=== PATIENT | male | born 1975 | race Caucasian/White ===

== ENCOUNTER 2018-01-25 05:12 | Inpatient (IN) ==
[2018-01-25] MEDS ORDERED: Metoprolol Tartrate 25 MG Tablet PO ONE (05:34)
[2018-01-25] MEDS ORDERED: Chlorhexidine Gluconate 2% 1 Pack (2 Cloths) TOPICAL ONE (05:34)
[2018-01-25] MEDS ORDERED: Chlorhexidine 4% Topical 120 APPLIC/120 ML Bottle TOPICAL SCH (05:45)
[2018-01-25] MEDS ORDERED: Sodium Chlor 0.9% Inj 500 ML IV.SIG SCH (06:00)
[2018-01-25 07:03] LABS: Baso # (Auto) 0.1 th/mm3 (0.0-0.2); Baso % (Auto) 0.8 % (0.0-2.0); Eos # (Auto) 0.3 th/mm3 (0.0-0.4); Hematocrit 43.2 % (39.0-51.0); Hemoglobin 14.8 gm/dL (13.0-17.0); Lymph # (Auto) 3.4 th/mm3 (1.0-4.8); Lymph % (Auto) 25.2 % (9.0-44.0); Mean Corpuscular HGB Conc 34.3 % (32.0-36.0); Mean Corpuscular Hemoglobin 29.9 pg (27.0-34.0); Mean Corpuscular Volume 87.2 fL (80.0-100.0); Mean Platelet Volume 9.9 fL (7.0-11.0); Mono % (Auto) 7.3 % (0.0-8.0); Neut # (Auto) 8.8 th/mm3 (1.8-7.7); Neut % (Auto) 64.7 % (16.0-70.0); Platelet Count 278 th/mm3 (150-450); Red Blood Count 4.96 mil/mm3 (4.50-5.90); Red Cell Distribution Width 13.3 % (11.6-17.2); White Blood Count 13.5 th/mm3 (4.0-11.0)
[2018-01-25] MEDS ORDERED: Sodium Chlor 0.9% Inj 500 ML IV.CONT ONE (07:04)
[2018-01-25] MEDS ORDERED: Ketorolac Inj 30 MG/ML (IVP) Vial IV.PUSH ONE (07:04)
[2018-01-25] MEDS ORDERED: Succinylcholine Inj 100 MG/5 ML Syringe IV.PUSH ONE (07:04)
[2018-01-25] MEDS ORDERED: Glycopyrrolate Inj 1 MG/5 ML Syringe IV.PUSH ONE (07:04)
[2018-01-25] MEDS ORDERED: Neostigmine Inj 5 MG/5 ML Syringe IV.PUSH ONE (07:04)
[2018-01-25] MEDS ORDERED: Lidocaine PF 1% Inj 5 ML Syringe OTHER ONE (07:04)
[2018-01-25] MEDS ORDERED: Clindamycin Inj 900 MG/6 ML Vial ONE (07:10)
[2018-01-25] MEDS ORDERED: Bupivacaine/Epinephrine Inj 0.25% 50 ML Vial ONE (07:19)
[2018-01-25] MEDS ORDERED: MEROPENEM 1000 MG VIAL INFILTRATN ONE (08:00)
[2018-01-25] MEDS ORDERED: HYDROmorphone PF Inj 2 MG/ML Vial ONE (08:25)
[2018-01-25] MEDS ORDERED: Post-op Orders (for Pharmacy) OTHER STA (08:43)
[2018-01-25] MEDS ORDERED: Vancomycin Inj 1 GM/200 ML PIGGYBACK IV.SIG SCH (09:00)
--- NOTE | 2018-01-25 09:00 | P.OP ---
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 My P.A. presence was necessary throughout this case for the manipulation and positioning of the surgical extremity. My P.A. was assisting me throughout the duration of this procedure. The skill set of a physician hr assistant was medically necessary to complete this procedure. During the surgical case the surgical clinical reviewer was working at the back table and the physician hr assistant was directly assisting me. Operation and Findings: Ghassan had a type III open tibia several years ago. He has had multiple surgeries and procedures. He has had continued osteomyelitis and infected hardware of his right tibia. Treatment options were discussed. Patient wished to proceed with amputation. Informed consent was obtained preoperatively and operative site was marked. Patient was brought to the OR and placed on the OR table. IV sedation and GETA were administered by anesthesia and IV antibiotics were given. The Operative leg was prepped with alcohol, followed by Hibiclens and draped in the usual sterile fashion. Time out procedure was performed. The procedure began with removal of deep hardware. Incisions were made over the distal interlocking screws. The screws were localized under fluoroscopy. The screws were now removed. The 2 proximal screws were also identified under fluoroscopy. Incisions were made over the proximal screws. A third incision was made over the patellar tendon. Full-thickness flaps were elevated. A guidepin was placed through the tibial cortex into the tibial nail. Opening reamer was placed over the guidepin. The tibial court extractor was screwed into the nail. All screws were removed from the nail. The nail was now back slapped and removed. Cultures were obtained from the surface of the nail. Next, attention was turned towards amputation. A standard incision for below- knee amputation. A long posterior flap was maintained. The subcutaneous tissue was dissected with Bovie. The tibia and fibula were now exposed and the anterior compartment was incised. At this point, the soft tissue was retracted. The tibia was cut with an oscillating saw. The fibula was now cut 1 cm shorter than the tibia. At this point, the tourniquet was inflated. The posterior flap was now incised sharply. The foot was now removed from the field. At this point, attention was turned to hemostasis. The anterior and posterior tibial vessels were identified. An anterior tibial and posterior tibial artery and vein were now ligated with PDS suture ties. The posterior tibial nerve was identified. The nerve sheath was injected with a 0.25% Marcaine with epinephrine for pain relief. The nerve was transected proximal to the tibial cut. At this point, the deep posterior compartment was excised. The anterior compartment, lateral compartment, and deep posterior compartments were all excised. The gastroc and soleus muscles were left intact. The edges of the bone were smoothed with a rasp. The tourniquet was released and hemostasis was confirmed. Next attention was turned towards irrigation and debridement of the proximal tibia segment. Curettes and rongeurs were used to debride the tibial canal. Cultures were obtained from within the tibial canal. There appeared to be probable infection within the tibial canal. Canal brush was used to debride the tibial canal. Pulsatile lavage was also used to debride the tibial canal. Nexus return antibiotic beads. 10 cc of stimulan cement was mixed with 2 g of Ancef and 1 g of meropenem. Beads were made. Once the beads were set the tibial canal was filled with antibiotic beads. Next attention was turned to wound closure. A drain was placed deep. The gastrocsoleus fascia was now sutured to the anterior tibial fascia with #1 PDS. The subcutaneous tissues were closed with 3-0 PDS and skin was closed with 3- 0 nylon. Sterile dressings were applied and CKS was applied. The patient was awakened and transferred to recovery in stable condition. Needle and sponge counts were correct.
[2018-01-25] MEDS ORDERED: fentaNYL Citrate Inj 100 MCG/2 ML Ampul ONE (09:37)
[2018-01-25] MEDS ORDERED: *HYDROmorphone PF Inj 1 MG/ML Ampul PERIprocedural Use ONLY ONE ×3 (09:37→11:23)
[2018-01-25] MEDS ORDERED: *morphine SULFATE 4 MG/ML PERIprocedure ONLY ONE ×2 (10:03→10:33)
[2018-01-25] MEDS: Gabapentin 300 MG Capsule PO SCH ×3 (10:06→18:33)
[2018-01-25] MEDS: Metoprolol Tartrate 50 MG Tablet PO SCH ×2 (12:14→20:14)
[2018-01-25] MEDS: Senna/Docusate Sodium 8.6/50 MG Tablet PO SCH ×2 (12:14→20:15)
[2018-01-25] MEDS: Ferrous Sulfate 325 MG Tablet PO SCH (12:24)
[2018-01-25] MEDS ORDERED: Influenza (Quadrivalent) Vaccine 0.5 ML Syringe IM ONE (14:00)
[2018-01-25] MEDS: ceFAZolin 2 GM Premix Inj 2 GM/50 ML PIGGYBACK IV.SIG SCH ×2 (16:26→23:24)
--- NOTE | 2018-01-25 18:38 | P.CONID ---
History of Present Illness Service: ID Consult date: 01/25/18 Requesting Physician: Farhat Yu Reason for Consult: R foot infection Primary Care Provider: Rico Humphries MD History of Present Illness: 42 yo male with remote trauma (2 yrs ago ) grade III open facture, h/o infected hardware, MSSA sp removal of hardware, prolonged abx and eventually devleoped chronic non union 1Sp Removal of deep hardware, right below knee amputation, irrigation and debridement of right tibia osteomyelitis, placement of antibiotic beads 01/25/18 on 01/25 No fever denies other problems Review of Systems All other systems reviewed negative except as stated in HPI PMFSH - Medical History Medical History: Medical History (Last Reviewed 01/26/18 @ 01:06 by Olga Mosquera MD) Cerebral infarction Hx of osteomyelitis Presence of IVC filter - Surgical History Surgical History: Surgical History (Last Reviewed 01/26/18 @ 01:06 by Olga Mosquera MD) History of open reduction and internal fixation (ORIF) procedure Hx of splenectomy - Social History I have reviewed the patient's Social History: Yes - Tobacco History Second Hand Smoke Exposure: No Tobacco Use In Past 30 Days: No Smoking Status: Former smoker - Alcohol History How Often Do You Have a Drink Containing Alcohol: Monthly or less - Substance Use History Substance History: No History of Abuse - Immunization History Tetanus Immunization: <5 Years Hx Influenza Vaccine This Season: No Medications and Allergies Active Medications: Active Medications Hydrocodone Bitart/Acetaminophen ([place] 10/325) 1 tab PO Q3H PRN PRN Reason: Pain Scale 3-10 Last Admin: 01/25/18 16:25 Dose: 1 tab Al Hydroxide/Mg Hydroxide (Milk Of Marvin Garber) 30 ml PO BID PRN PRN Reason: MILD CONSTIPATION Ascorbic Acid (Vitamin C) 500 mg PO DAILY [facility] Aspirin (Ecotrin) 81 mg PO Q12H [facility] Beta Carotene (Vitamin A) 25,000 unit PO DAILY [facility] Celecoxib (Celebrex) 200 mg PO DAILY [facility] Chlorhexidine Gluconate (Hibiclens 4% Topical) 1 applicatio TOPICAL ONCE [facility] Stop: 01/29/18 05:44 Diphenhydramine HCl (Benadryl) 25 mg PO Q6H PRN PRN Reason: ITCHING Ferrous Sulfate (Ferosul) 325 mg PO DAILY [facility] Last Admin: 01/25/18 12:24 Dose: 325 mg Gabapentin (Neurontin) 300 mg PO TID [facility] Last Admin: 01/25/18 18:33 Dose: 300 mg Hydromorphone HCl (Dilaudid Pf Inj) 1 mg IV.PUSH Q4H PRN PRN Reason: BREAKTHROUGH PAIN Lactated Ringer's (Lr 1000 Ml Inj) 1,000 mls @ 30 mls/hr IV.SIG .Q24H [facility] Stop: 01/26/18 05:44 Last Admin: 01/25/18 06:12 Dose: 30 mls/hr Sodium Chloride (Ns Inj) 500 mls @ 30 mls/hr IV.SIG .Q10H [facility] Last Admin: 01/25/18 09:13 Dose: Not Given Cefazolin Sodium/Dextrose (Ancef 2 Gm Premix Inj) 2 gm in 50 mls @ 100 mls/hr IV.SIG Q8H [facility] Stop: 01/26/18 00:29 Last Infusion: 01/25/18 16:55 Dose: Infused Metoprolol Tartrate (Lopressor) 50 mg PO BID [facility] Last Admin: 01/25/18 12:14 Dose: Not Given Miscellaneous Information ([facility] [place]) 1 each OTHER UNSCH PRN PRN Reason: SEE LABEL COMMENTS Stop: 01/26/18 09:28 Ondansetron HCl (Zofran Odt) 4 mg PO Q6H PRN PRN Reason: NAUSEA OR VOMITING Ondansetron HCl (Zofran Inj) 4 mg IV.PUSH Q6H PRN PRN Reason: NAUSEA Pantoprazole Sodium (Protonix) 20 mg PO DAILY [facility] Pravastatin Sodium (Pravachol) 40 mg PO HS [facility] Senna/Docusate Sodium (Sue-Colace) 1 tab PO BID [facility] Last Admin: 01/25/18 12:14 Dose: Not Given Sodium Chloride (Ns Flush) 2 ml IV.FLUSH BID [facility] Last Admin: 01/25/18 12:26 Dose: 2 ml Sodium Chloride (Ns Flush) 2 ml IV.FLUSH PRN PRN PRN Reason: FLUSH AFTER USING IV ACCESS Vitamin D (Vitamin D3) 400 unit PO DAILY [facility] Last Admin: 01/25/18 12:24 Dose: 400 unit Vitamin E (Vitamin E) 400 unit PO DAILY [facility] Allergies Allergy/AdvReac Type Severity Reaction Status Date / Time penicillin G Allergy Severe hives Unverified 08/15/17 17:47 vancomycin Allergy Severe Hives Verified 01/25/18 06:03 alprazolam [From Xanax] Allergy Hallucinati Verified 01/25/18 06:03 ons Home Medications Medication Instructions Recorded Confirmed Type ascorbic acid (vitamin C) [Vitamin 500 mg PO DAILY 01/25/18 01/25/18 History C] aspirin 81 mg PO DAILY 01/25/18 01/25/18 History cholecalciferol (vitamin D3) 400 unit PO DAILY 01/25/18 01/25/18 History [Vitamin D3] ferrous sulfate 325 mg PO DAILY 01/25/18 01/25/18 History hydrocodone-acetaminophen 1 tab PO Q4H 01/25/18 01/25/18 History metoprolol tartrate 50 mg PO BID 01/25/18 01/25/18 History omeprazole 20 mg PO DAILY 01/25/18 01/25/18 History simvastatin 20 mg PO QPM 01/25/18 01/25/18 History vitamin A 10,000 unit PO DAILY 01/25/18 01/25/18 History vitamin E 400 unit PO DAILY 01/25/18 01/25/18 History Exam Vital signs: Vital Signs 01/25/18 06:24 01/25/18 09:28 01/25/18 09:30 Temperature 98.7 F 98 F Pulse Rate 67 93 H 89 Respiratory Rate 18 28 H 21 Blood Pressure 125/76 158/75 H 131/60 Pulse Oximetry 95 96 94 L 01/25/18 09:45 01/25/18 10:00 01/25/18 10:15 Temperature Pulse Rate 86 77 69 Respiratory Rate 21 14 14 Blood Pressure 131/77 108/53 L 113/58 L Pulse Oximetry 95 94 L 97 01/25/18 11:00 01/25/18 11:30 01/25/18 12:24 Temperature 97.6 F Pulse Rate 66 71 Respiratory Rate 15 15 20 Blood Pressure 111/56 L 116/61 Pulse Oximetry 96 96 01/25/18 12:54 01/25/18 16:00 Temperature 97.2 F L Pulse Rate 84 Respiratory Rate 20 16 Blood Pressure 127/59 L Pulse Oximetry 96 Intake & Output 01/24/18 01/25/18 01/25/18 18:59 06:59 18:59 Intake Total 950 / 950 Output Total 330 / 330 Balance 620 / 620 Weight 72.5 kg 137 kg Intake: IV 50 / 50 Ancef 2 GM Premix Inj 2 gm In 50 / 50 50 ml @ 100 mls/hr IV.SIG Q8H [facility] Rx#:[id number] Oral 100 / 100 Anesthesia Amount 800 / 800 Output: Urine 0 / 0 Estimated Blood Loss 300 / 300 Wound Drainage 30 / 30 Right Knee 30 / 30 Other: Weight On Admission 72.5 kg - Constitutional no acute distress, obese - Routine HEENT Exam Head: Present: normocephalic, atraumatic Eye: Present: EOMI, PERRL ENT: Present: mucous membranes moist, oropharynx clear - Routine Neck Exam Present: supple. Absent: JVD - Routine Respiratory Exam Present: CTA bilaterally. Absent: decreased breath sounds, respiratory distress - Routine Cardiovascular Exam Present: RRR, S1, S2. Absent: murmur, gallop, rubs - Routine Abdominal Exam Present: soft, normoactive bowel sounds. Absent: tenderness, distended, organomegaly, mass - Routine Extremities Exam Present: amputation (R BKD ). Absent: cyanosis, clubbing Comments: Sp R BKA with dressing , drain in place - Routine Neurological Exam Present: alert, oriented X3, CN II-XII intact. Absent: sensory deficit, motor deficit - Routine Psychiatric Exam Present: normal affect, cooperative Results - Labs CBC & Chem 7: 01/25/18 06:52 Labs: Laboratory Results - last 24 hr 01/25/18 01/25/18 06:52 06:52 WBC 13.5 H RBC 4.96 Hgb 14.8 Hct 43.2 MCV 87.2 MCH 29.9 MCHC 34.3 RDW 13.3 Plt Count 278 MPV 9.9 Neut % (Auto) 64.7 Lymph % (Auto) 25.2 [place] % (Auto) 7.3 Eos % (Auto) 2.0 Baso % (Auto) 0.8 Neut # (Auto) 8.8 H Lymph # (Auto) 3.4 [place] # (Auto) 1.0 H Eos # (Auto) 0.3 Baso # (Auto) 0.1 WBC Differential . 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
--- NOTE | 2018-01-25 18:38 | P.PNADD ---
Addendum to Inpatient Note Additional information: seen vidal maldonado full note to follow
[2018-01-25] MEDS: HYDROmorphone PF Inj 1 MG/ML Ampul IV.PUSH PRN (22:06)
[2018-01-26] MEDS: HYDROmorphone PF Inj 1 MG/ML Ampul IV.PUSH PRN ×4 (02:11→21:04)
--- NOTE | 2018-01-26 07:03 | P.PNOP ---
Subjective Interval history: POD 1 s/p removal of HW with right BKA doing well. states pain but improving Physical Exam Vital signs: Vital Signs 01/25/18 09:28 01/25/18 09:30 01/25/18 09:45 Temperature 98 F Pulse Rate 93 H 89 86 Respiratory Rate 28 H 21 21 Blood Pressure 158/75 H 131/60 131/77 Pulse Oximetry 96 94 L 95 01/25/18 10:00 01/25/18 10:15 01/25/18 11:00 Temperature Pulse Rate 77 69 66 Respiratory Rate 14 14 15 Blood Pressure 108/53 L 113/58 L 111/56 L Pulse Oximetry 94 L 97 96 01/25/18 11:30 01/25/18 12:24 01/25/18 12:54 Temperature 97.6 F Pulse Rate 71 Respiratory Rate 15 20 20 Blood Pressure 116/61 Pulse Oximetry 96 01/25/18 16:00 01/25/18 20:00 01/26/18 00:00 Temperature 97.2 F L 97.5 F L 98.0 F Pulse Rate 84 88 77 Respiratory Rate 16 18 20 Blood Pressure 127/59 L 136/59 L 139/66 Pulse Oximetry 96 94 L 97 01/26/18 04:00 Temperature 98.0 F Pulse Rate 63 Respiratory Rate 18 Blood Pressure 139/59 L Pulse Oximetry 97 Intake & Output 01/25/18 01/26/18 01/26/18 18:59 06:59 18:59 Intake Total 950 / 950 810 / 810 Output Total 355 / 355 1215 / 1215 Balance 595 / 595 -405 / -405 Weight 137 kg 137 kg Intake: IV 50 / 50 50 / 50 Ancef 2 GM Premix Inj 2 gm In 50 / 50 50 / 50 50 ml @ 100 mls/hr IV.SIG Q8H [facility] Rx#:[id number] Oral 100 / 100 760 / 760 Anesthesia Amount 800 / 800 Output: Urine 0 / 0 1200 / 1200 Estimated Blood Loss 300 / 300 Wound Drainage Right Knee 55 Other: Date of Last Bowel Movement 01/25/18 Narrative: RLE: dressings clean and dry. intact. +CKS. +drain Results - Labs CBC & Chem 7: 01/25/18 06:52 Laboratory Results - last 24 hr 01/25/18 01/25/18 06:52 06:52 WBC 13.5 H RBC 4.96 Hgb 14.8 Hct 43.2 MCV 87.2 MCH 29.9 MCHC 34.3 RDW 13.3 Plt Count 278 MPV 9.9 Neut % (Auto) 64.7 Lymph % (Auto) 25.2 [place] % (Auto) 7.3 Eos % (Auto) 2.0 Baso % (Auto) 0.8 Neut # (Auto) 8.8 H Lymph # (Auto) 3.4 [place] # (Auto) 1.0 H Eos # (Auto) 0.3 Baso # (Auto) 0.1 WBC Differential . Differential Comment Auto diff final Blood Type A Positive Blood Type Recheck Not needed Antibody Screen Negative Microbiology 01/25/18 08:06 Wound - Leg Fungal Smear - Final No fungal elements seen 01/25/18 08:06 Wound - Other Fungal Smear - Final No fungal elements seen 01/25/18 08:06 Tissue - Other Fungal Smear - Final No fungal elements seen 01/25/18 Unknown Tissue - Other Gram Stain - Final 01/25/18 08:06 Wound - Other Gram Stain - Final 01/25/18 08:06 Wound - Leg Gram Stain - Final Assessment and Plan - Assessment and Plan 1) Right Leg Removal of IMN with conversion to BKA - POD 1 -NWB -knee brace at all times -elevate -maintain dressings and drain -plan for dressing change on wednesday by [place] team -awaiting cultures -infectious Dz team to follow
[2018-01-26] MEDS: Metoprolol Tartrate 50 MG Tablet PO SCH ×2 (08:03→20:00)
[2018-01-26] MEDS: Ferrous Sulfate 325 MG Tablet PO SCH (08:03)
[2018-01-26] MEDS: Celecoxib 200 MG Capsule PO SCH (08:03)
[2018-01-26] MEDS: Senna/Docusate Sodium 8.6/50 MG Tablet PO SCH ×2 (08:03→20:00)
[2018-01-26] MEDS: Ascorbic Acid 500 MG Tablet PO SCH (08:03)
[2018-01-26] MEDS: Gabapentin 300 MG Capsule PO SCH ×3 (08:04→18:03)
[2018-01-26] MEDS: Pantoprazole Sodium 20 MG DR Tablet PO SCH (08:04)
[2018-01-26] MEDS: BETA CAROTENE 25000 UNIT PO SCH (08:04)
--- NOTE | 2018-01-26 08:32 | XR ---
EXAM DATE: 01/25/2018 8:18 AM EST AGE/SEX: 42 years / Male INDICATIONS: Hardware removal, antibiotic bead placement and post op right tib/fib amputation. CLINICAL DATA: This is the patient's initial encounter. Patient reports that signs and symptoms have been present for 1 day and indicates a pain score of Nonresponsive. MEDICAL/SURGICAL HISTORY: Non-responsive. Non-responsive. COMPARISON: [facility] [place], TIBIA/FIBULA RIGHT ( 1 VW), 08/02/2015. . FINDINGS: 2 magnified C-arm spot views are of the lower leg and are labeled right. These show a below knee ampu tation. Radiopaque densities are seen overlying the proximal tibia. These are unchanged from the prio r exam. CONCLUSION: Limited images as detailed above. Electronically signed by: Yoav Mulligan MD 01/26/2018 8:30 AM EST
--- NOTE | 2018-01-26 13:43 | P.PNID ---
Subjective Remarks: jada Yu IM court in tibia probably was all infected no organisms ID'd on multiple Gstains Antibiotics: none Allergies/Adverse Reactions: Allergies penicillin G Allergy (Severe, Unverified 10/20/16 17:47) hives Tolerates Cephalosporins vancomycin Allergy (Severe, Verified 01/25/18 06:03) Hives alprazolam [From Xanax] Allergy (Verified 01/25/18 06:03) Hallucinations Objective Vital Signs 01/25/18 16:00 01/25/18 20:00 01/26/18 00:00 Temperature 97.2 F L 97.5 F L 98.0 F Pulse Rate 84 88 77 Respiratory Rate 16 18 20 Blood Pressure 127/59 L 136/59 L 139/66 Pulse Oximetry 96 94 L 97 01/26/18 04:00 01/26/18 08:00 01/26/18 12:00 Temperature 98.0 F 97.4 F L 97.4 F L Pulse Rate 63 52 L 52 L Respiratory Rate 18 17 16 Blood Pressure 139/59 L 134/78 119/61 Pulse Oximetry 97 96 97 Intake & Output 01/25/18 01/26/18 01/26/18 18:59 06:59 18:59 Intake Total 950 / 950 810 / 810 Output Total 355 / 355 1215 / 1215 Balance 595 / 595 -405 / -405 Weight 137 kg 137 kg Intake: IV 50 / 50 50 / 50 Ancef 2 GM Premix Inj 2 gm In 50 / 50 50 / 50 50 ml @ 100 mls/hr IV.SIG Q8H [facility] Rx#:[id number] Oral 100 / 100 760 / 760 Anesthesia Amount 800 / 800 Output: Urine 0 / 0 1200 / 1200 Estimated Blood Loss 300 / 300 Wound Drainage 55 / 55 Right Knee 55 / 55 Other: Date of Last Bowel Movement 01/25/18 01/25/18 01/25/18 08:06 Wound - Leg Fungal Smear - Final No fungal elements seen 01/25/18 08:06 Wound - Leg Fungal Culture - Pending 01/25/18 08:06 Wound - Other Fungal Smear - Final No fungal elements seen 01/25/18 08:06 Wound - Other Fungal Culture - Pending 01/25/18 08:06 Tissue - Other Fungal Smear - Final No fungal elements seen 01/25/18 08:06 Tissue - Other Fungal Culture - Pending 01/25/18 Unknown Tissue - Other Gram Stain - Final 01/25/18 Unknown Tissue - Other Wound Culture - Pending 01/25/18 08:06 Wound - Other Gram Stain - Final 01/25/18 08:06 Wound - Other Wound Culture - Pending 01/25/18 08:06 Wound - Leg Gram Stain - Final 01/25/18 08:06 Wound - Leg Wound Culture - Pending 01/25/18 08:06 Tissue - Other Acid Fast Bacilli Smear - Pending 01/25/18 08:06 Tissue - Other Mycobacterial Culture - Pending 01/25/18 08:06 Wound - Other Acid Fast Bacilli Smear - Pending 01/25/18 08:06 Wound - Other Mycobacterial Culture - Pending 01/25/18 08:06 Wound - Leg Acid Fast Bacilli Smear - Pending 01/25/18 08:06 Wound - Leg Mycobacterial Culture - Pending Lab - Hematology Results 01/25/18 06:52 WBC 13.5 H RBC 4.96 Hgb 14.8 Hct 43.2 MCV 87.2 MCH 29.9 MCHC 34.3 RDW 13.3 Plt Count 278 MPV 9.9 Neut % (Auto) 64.7 Lymph % (Auto) 25.2 [place] % (Auto) 7.3 Eos % (Auto) 2.0 Baso % (Auto) 0.8 Neut # (Auto) 8.8 H Lymph # (Auto) 3.4 [place] # (Auto) 1.0 H Eos # (Auto) 0.3 Baso # (Auto) 0.1 WBC Differential . Differential Comment Auto diff final Imaging: ITS Impressions Tibia/Fibula X-Ray 01/25/18 00:00 CONCLUSION: Limited images as detailed above. Physical Exam: GENERAL: NAD SKIN: Warm and dry. no rash HEAD: Atraumatic. Normocephalic. EYES: No scleral icterus. ENT: No nasal bleeding or discharge. Mucous membranes pink and moist. CARDIOVASCULAR: Regular rate and rhythm. no murmurs RESPIRATORY: No accessory muscle use. Clear to auscultation. GASTROINTESTINAL: Abdomen soft, non-tender, nondistended. MUSCULOSKELETAL: Extremities without clubbing, cyanosis, or edema. RLE w ith post op dressing in place, BRIAN drain in place with serosag d/c NEUROLOGICAL: Awake and alert. 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
[2018-01-26] MEDS ORDERED: ceFAZolin Inj 2,000 MG in Sodium Chlor 0.9% Inj 80 ML IV.SIG SCH (14:00)
[2018-01-26] MEDS: ceFAZolin 2 GM Premix Inj 2 GM/50 ML PIGGYBACK IV.SIG SCH ×2 (16:32→23:09)
[2018-01-27] MEDS: HYDROmorphone PF Inj 1 MG/ML Ampul IV.PUSH PRN ×6 (01:02→23:53)
--- NOTE | 2018-01-27 07:59 | P.PNOP ---
Subjective Interval history: Doing well. Good spirits. No complaints Physical Exam Vital signs: Vital Signs 01/26/18 08:00 01/26/18 12:00 01/26/18 16:00 Temperature 97.4 F L 97.4 F L 97.1 F L Pulse Rate 52 L 52 L 51 L Respiratory Rate 17 16 16 Blood Pressure 134/78 119/61 111/58 L Pulse Oximetry 96 97 96 01/26/18 20:00 01/27/18 00:00 Temperature 97.8 F 97.7 F Pulse Rate 53 L 46 L Respiratory Rate 18 18 Blood Pressure 117/61 101/57 L Pulse Oximetry 94 L 96 Intake & Output 01/26/18 01/27/18 01/27/18 18:59 06:59 18:59 Intake Total 1350 / 1350 530 / 530 Output Total 815 / 815 705 / 705 Balance 535 / 535 -175 / -175 Weight 135 kg Intake: IV 50 / 50 50 / 50 Ancef 2 GM Premix Inj 2 gm In 50 / 50 50 / 50 50 ml @ 150 mls/hr IV.SIG Q8H [facility] Rx#:[id number] Oral 1300 / 1300 480 / 480 Output: Urine 800 / 800 700 / 700 Wound Drainage 5 / 5 Right Knee 5 / 5 Other: Date of Last Bowel Movement 01/25/18 # Bowel Movements 0 Narrative: RLE: dressings clean and dry. intact. +CKS. +drain Results - Labs CBC & Chem 7: 01/25/18 06:52 Microbiology 01/25/18 Unknown Tissue - Other Gram Stain - Final 01/25/18 Unknown Tissue - Other Wound Culture - Preliminary Staphylococcus coag negative 01/25/18 08:06 Tissue - Other Fungal Smear - Final No fungal elements seen 01/25/18 08:06 Wound - Leg Gram Stain - Final 01/25/18 08:06 Wound - Leg Wound Culture - Preliminary Staphylococcus coag negative 01/25/18 08:06 Wound - Leg Fungal Smear - Final No fungal elements seen - Imaging Impressions Tibia/Fibula X-Ray 01/25/18 00:00 CONCLUSION: Limited images as detailed above. Assessment and Plan - Assessment and Plan Chronic wound right leg. Status post IM nail, right tibia. 1) Right Leg Removal of IMN with conversion to BKA - POD 2 PLAN: -NWB -knee brace at all times -elevate -maintain dressings and drain -plan for dressing change on wednesday by [place] team -awaiting cultures, growing coag negative staph. -infectious Dz team to follow
[2018-01-27] MEDS ORDERED: Vancomycin Consult Pharmacy OTHER PRN (08:04)
[2018-01-27] MEDS: Metoprolol Tartrate 50 MG Tablet PO SCH ×2 (08:11→21:42)
[2018-01-27] MEDS: Senna/Docusate Sodium 8.6/50 MG Tablet PO SCH ×2 (08:11→21:43)
[2018-01-27] MEDS: Pantoprazole Sodium 20 MG DR Tablet PO SCH (08:12)
[2018-01-27] MEDS: BETA CAROTENE 25000 UNIT PO SCH (08:12)
[2018-01-27] MEDS: Celecoxib 200 MG Capsule PO SCH (08:12)
[2018-01-27] MEDS: Gabapentin 300 MG Capsule PO SCH ×3 (08:12→17:57)
[2018-01-27] MEDS: Ferrous Sulfate 325 MG Tablet PO SCH (08:12)
[2018-01-27] MEDS: Ascorbic Acid 500 MG Tablet PO SCH (08:12)
[2018-01-27] MEDS ORDERED: Vancomycin Inj 2,000 MG in Sodium Chlor 0.9% Inj 500 ML IV.SIG ONE (10:00)
[2018-01-27] MEDS: DAPTOmycin Inj 1,000 MG in Sodium Chlor 0.9% Inj 100 ML IV.SIG SCH (13:43)
[2018-01-27] MEDS: ceFAZolin 2 GM Premix Inj 2 GM/50 ML PIGGYBACK IV.SIG SCH (23:21)
--- NOTE | 2018-01-28 07:56 | P.PNOP ---
Subjective Interval history: No complaints. Pain control Physical Exam Vital signs: Vital Signs 01/27/18 08:00 01/27/18 08:11 01/27/18 08:41 Temperature 97.4 F L Pulse Rate 53 L Respiratory Rate 16 16 16 Blood Pressure 123/59 L Pulse Oximetry 95 01/27/18 10:45 01/27/18 11:54 01/27/18 12:00 Temperature 97.4 F L Pulse Rate 52 L Respiratory Rate 16 16 16 Blood Pressure 115/60 Pulse Oximetry 98 01/27/18 14:50 01/27/18 16:00 01/27/18 17:57 Temperature 97.4 F L Pulse Rate 54 L Respiratory Rate 16 16 16 Blood Pressure 106/56 L Pulse Oximetry 95 01/27/18 18:30 01/27/18 20:00 01/28/18 00:00 Temperature 97.4 F L 97.4 F L Pulse Rate 76 65 Respiratory Rate 18 18 16 Blood Pressure 133/60 119/57 L Pulse Oximetry 96 94 L Intake & Output 01/27/18 01/28/18 01/28/18 18:59 06:59 18:59 Intake Total 720 / 720 100 / 100 Output Total 450 / 450 600 / 600 Balance 270 / 270 -500 / -500 Weight 132.5 kg Intake: IV 100 / 100 Cubicin Inj 1,000 MG In NS Inj 100 / 100 100 ML @ 200 mls/hr IV.SIG Q24H [facility] Rx#:[id number] Oral 720 / 720 Output: Urine 450 / 450 600 / 600 Other: Date of Last Bowel Movement 01/25/18 Narrative: RLE: dressings clean and dry. intact. +CKS. +drain Results - Labs CBC & Chem 7: 01/25/18 06:52 01/27/18 10:00 Laboratory Results - last 24 hr 01/27/18 10:00 Creatinine 1.09 Estimated GFR 74 L Total Creatine Kinase 287 Microbiology 01/25/18 08:06 Wound - Leg Acid Fast Bacilli Smear - Final No acid fast bacilli seen 01/25/18 08:06 Tissue - Other Acid Fast Bacilli Smear - Final No acid fast bacilli seen 01/25/18 08:06 Wound - Other Acid Fast Bacilli Smear - Final No acid fast bacilli seen 01/25/18 Unknown Tissue - Other Gram Stain - Final 01/25/18 Unknown Tissue - Other Wound Culture - Final Group B beta Strep 01/25/18 08:06 Wound - Other Gram Stain - Final 01/25/18 08:06 Wound - Other Wound Culture - Final Group B beta Strep 01/25/18 08:06 Wound - Leg Gram Stain - Final 01/25/18 08:06 Wound - Leg Wound Culture - Final Group B beta Strep Assessment and Plan - Assessment and Plan Chronic wound right leg. Status post IM nail, right tibia. 1) Right Leg Removal of IMN with conversion to BKA - POD 2 PLAN: -NWB -knee brace at all times -elevate -maintain dressings and drain -plan for dressing change on wednesday by [place] team -awaiting cultures, growing group B strep -infectious Dz team to follow
[2018-01-28] MEDS: HYDROmorphone PF Inj 1 MG/ML Ampul IV.PUSH PRN ×3 (09:09→20:10)
[2018-01-28] MEDS: Pantoprazole Sodium 20 MG DR Tablet PO SCH (09:11)
[2018-01-28] MEDS: Senna/Docusate Sodium 8.6/50 MG Tablet PO SCH ×2 (09:12→20:09)
[2018-01-28] MEDS: BETA CAROTENE 25000 UNIT PO SCH (09:12)
[2018-01-28] MEDS: Ascorbic Acid 500 MG Tablet PO SCH (09:12)
[2018-01-28] MEDS: Metoprolol Tartrate 50 MG Tablet PO SCH ×2 (09:12→20:09)
[2018-01-28] MEDS: Celecoxib 200 MG Capsule PO SCH (09:12)
[2018-01-28] MEDS: Gabapentin 300 MG Capsule PO SCH ×3 (09:12→18:13)
[2018-01-28] MEDS: Ferrous Sulfate 325 MG Tablet PO SCH (09:12)
[2018-01-28] MEDS: DAPTOmycin Inj 1,000 MG in Sodium Chlor 0.9% Inj 100 ML IV.SIG SCH (14:41)
[2018-01-29] MEDS: HYDROmorphone PF Inj 1 MG/ML Ampul IV.PUSH PRN ×5 (00:18→20:48)
[2018-01-29] MEDS: BETA CAROTENE 25000 UNIT PO SCH (09:09)
[2018-01-29] MEDS: Gabapentin 300 MG Capsule PO SCH ×3 (09:09→18:30)
[2018-01-29] MEDS: Celecoxib 200 MG Capsule PO SCH (09:09)
[2018-01-29] MEDS: Ferrous Sulfate 325 MG Tablet PO SCH (09:09)
[2018-01-29] MEDS: Senna/Docusate Sodium 8.6/50 MG Tablet PO SCH ×2 (09:10→20:48)
[2018-01-29] MEDS: Metoprolol Tartrate 50 MG Tablet PO SCH ×2 (09:10→20:48)
[2018-01-29] MEDS: Pantoprazole Sodium 20 MG DR Tablet PO SCH (09:10)
[2018-01-29] MEDS: Ascorbic Acid 500 MG Tablet PO SCH (09:12)
--- NOTE | 2018-01-29 09:14 | P.DCO ---
- Nursing Nursing: Dressing changes Dressing changes: Daily dressing change, Xeroform, Coverderm/Primapore - Certification Need for Home Health services: I have seen patient Ghassan Berger on 01/29/18. My clinical findings support the need for the requested home health care services because: Need for Home Health Services: Limited mobility due to disease progression Homebound Certification: I certify that my clinical findings support that this patient is homebound because: Homebound Certification: Post-op weakness
--- NOTE | 2018-01-29 09:16 | P.PNOP ---
Subjective Interval history: POd 4 s/p Right BKA doing well. pain controlled. no new complaints Physical Exam Vital signs: Vital Signs 01/28/18 12:00 01/28/18 16:00 01/28/18 20:00 Temperature 97.5 F L 97.8 F 98.5 F Pulse Rate 51 L 67 75 Respiratory Rate 16 17 18 Blood Pressure 110/56 L 122/70 104/62 Pulse Oximetry 96 96 95 01/28/18 23:33 01/29/18 00:00 Temperature 97.6 F Pulse Rate 73 Respiratory Rate 18 17 Blood Pressure 121/61 Pulse Oximetry 93 L Intake & Output 01/28/18 01/29/18 01/29/18 18:59 06:59 18:59 Intake Total 1500 / 1500 Output Total 1210 / 1210 1200 / 1200 Balance 290 / 290 -1200 / -1200 Weight 131.1 kg Intake: IV 100 / 100 Cubicin Inj 1,000 MG In NS Inj 100 / 100 100 ML @ 200 mls/hr IV.SIG Q24H [facility] Rx#:[id number] Oral 1400 / 1400 Output: Urine 1200 / 1200 1200 / 1200 Wound Drainage 10 Right Knee 10 Other: # Bowel Movements 0 Narrative: RLE: dressings clean and dry. itnact. removed and incision visualized. healing well. no erythema or necrosis. minimal swelling. Results - Labs CBC & Chem 7: 01/25/18 06:52 01/27/18 10:00 Assessment and Plan - Problem List (1) Below knee amputation status Code(s): Z89.519 - Acquired absence of unspecified leg below knee Status: Acute - Assessment and Plan Chronic wound right leg. Status post IM nail, right tibia. 1) Right Leg Removal of IMN with conversion to BKA - POD 4 PLAN: -NWB -knee brace at all times -elevate -dressing changed at bedside today -daily dressing changes with xeroform/primapore -awaiting cultures, growing group B strep -infectious Dz team to follow -cleared for DC home once Abx arranged -f/u with [place] or [facility] in 2 weeks [facility] Prescription Drug Monitoring Database has been queried and verified prior to prescribing the controlled substance. Acute pain exception. This patient has normal, predicted, physiological, and time limited response to an adverse mechanical stimulus associated with surgery, trauma, or acute illness as described in my notes. There is a lack of alternative treatment options other than to include the prescribed narcotic treatment for this condition.
--- NOTE | 2018-01-29 09:18 | P.DS ---
Date of admission: 01/25/18 05:12 Primary care physician: Rico Humphries MD Attending physician on discharge: Farhat Be Anticipated date of discharge: 01/29/18 Brief History from admission: Patient previously known to Dr. Be from previous trauma 2 years ago with subsequent tibial nail. He underwent multiple procedures after suffering postoperative infection. 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 The decision was made to move forward with removal of hardware and conversion to a below knee amputation DS: Diagnosis - Discharge Diagnosis (1) Below knee amputation status Status: Acute DS: Medications - Discharge Medications Prescriptions: gabapentin [Neurontin] 300 mg PO TID #30 cap hydrocodone-acetaminophen [Holden] 1 tab PO Q4H PRN #42 tab PRN Reason: Acute Pain DS: Summary Hospital Course: Patient admitted for removal of hardware and conversion to a right below-knee amputation. He tolerated it well. His pain is well controlled on the floor. By postop day 4, he was ready for his initial dressing change. He tolerated that well. His pain was well controlled, his wound is healing appropriately, he is hemodynamically stable and fit for discharge home with home health care. Intraoperative cultures were taken which are growing group B strep. Infectious disease was consulted. They will arrange home antibiotics per their recommendations. He will be discharged home and remain strictly nonweightbearing on the right leg. He will have daily dressing changes. He will follow-up with Dr. Be or his PA in 2 weeks - Time Spent with Patient Total time spent providing and/or coordinating discharge services: Less than 30 minutes Exam Vital signs: Vital Signs 01/28/18 12:00 01/28/18 16:00 01/28/18 20:00 Temperature 97.5 F L 97.8 F 98.5 F Pulse Rate 51 L 67 75 Respiratory Rate 16 17 18 Blood Pressure 110/56 L 122/70 104/62 Pulse Oximetry 96 96 95 01/28/18 23:33 01/29/18 00:00 Temperature 97.6 F Pulse Rate 73 Respiratory Rate 18 17 Blood Pressure 121/61 Pulse Oximetry 93 L Intake & Output 01/28/18 01/29/18 01/29/18 18:59 06:59 18:59 Intake Total 1500 / 1500 Output Total 1210 / 1210 1200 / 1200 Balance 290 / 290 -1200 / -1200 Weight 131.1 kg Intake: IV 100 / 100 Cubicin Inj 1,000 MG In NS Inj 100 / 100 100 ML @ 200 mls/hr IV.SIG Q24H [facility] Rx#:[id number] Oral 1400 / 1400 Output: Urine 1200 / 1200 1200 / 1200 Wound Drainage 10 Right Knee Other: # Bowel Movements 0 Narrative: RLE: dressings clean and dry. itnact. removed and incision visualized. healing well. no erythema or necrosis. minimal swelling. Results Procedures completed during hospitalization: Removal of hardware right leg with conversion to right below-knee amputation Pending studies at discharge: Pending at discharge 01/25/18 08:51 Surgical [PTH] Routine - Impressions ITS Impressions Tibia/Fibula X-Ray 01/25/18 00:00 CONCLUSION: Limited images as detailed above. Discharge Plan - Discharge Disposition Patient Disposition: /Home Health Service - Discharge Condition Condition: Good - Discharge Order Discharge Orders: Discharge Order (Routine); Ordered 01/29/18 Ordered By: Ezra Diaz - Physicians Team Primary Care Provider: Rico Humphries Attending Provider: Farhat Be Other Providers: Farhat Be MD ; Olga Mosquera MD - Rxs /Orders / Referrals /Forms Prescriptions: New gabapentin [Neurontin] 300 mg Capsule 300 mg PO TID Qty: 30 RF: 0 hydrocodone-acetaminophen [Holden] 10-325 mg Tablet 1 tab PO Q4H PRN (Reason: Acute Pain) Qty: 42 RF: 0 Continue ascorbic acid (vitamin C) [Vitamin C] 500 mg Capsule, Extended Release 500 mg PO DAILY aspirin 81 mg Tablet,Delayed Release (Dr/Ec) 81 mg PO DAILY cholecalciferol (vitamin D3) [Vitamin D3] 400 unit Tablet 400 unit PO DAILY ferrous sulfate 325 mg (65 mg iron) Tablet 325 mg PO DAILY hydrocodone-acetaminophen 5-325 mg Tablet 1 tab PO Q4H metoprolol tartrate 50 mg Tablet 50 mg PO BID omeprazole 20 mg Capsule,Delayed Release(Dr/Ec) 20 mg PO DAILY simvastatin 20 mg Tablet 20 mg PO QPM vitamin A 10,000 unit Capsule 10,000 unit PO DAILY vitamin E 400 unit Capsule 400 unit PO DAILY Referrals: Rico Humphries MD [Primary Care Provider] - See Instructions
[2018-01-29] MEDS: DAPTOmycin Inj 1,000 MG in Sodium Chlor 0.9% Inj 100 ML IV.SIG SCH (13:19)
[2018-01-30] MEDS: HYDROmorphone PF Inj 1 MG/ML Ampul IV.PUSH PRN ×6 (00:45→21:39)
[2018-01-30] MEDS: BETA CAROTENE 25000 UNIT PO SCH ×2 (07:23→08:25)
[2018-01-30] MEDS: Ferrous Sulfate 325 MG Tablet PO SCH ×2 (07:23→08:24)
[2018-01-30] MEDS: Gabapentin 300 MG Capsule PO SCH ×4 (07:23→17:38)
[2018-01-30] MEDS: Celecoxib 200 MG Capsule PO SCH ×2 (07:24→08:24)
[2018-01-30] MEDS: Pantoprazole Sodium 20 MG DR Tablet PO SCH ×2 (07:24→08:25)
[2018-01-30] MEDS: Senna/Docusate Sodium 8.6/50 MG Tablet PO SCH ×3 (07:25→20:48)
[2018-01-30] MEDS: Metoprolol Tartrate 50 MG Tablet PO SCH ×3 (07:25→20:48)
[2018-01-30] MEDS: Ascorbic Acid 500 MG Tablet PO SCH ×2 (07:25→08:25)
[2018-01-30] MEDS: DAPTOmycin Inj 1,000 MG in Sodium Chlor 0.9% Inj 100 ML IV.SIG SCH (11:59)
[2018-01-31] MEDS: HYDROmorphone PF Inj 1 MG/ML Ampul IV.PUSH PRN ×5 (01:41→23:58)
--- NOTE | 2018-01-31 06:59 | P.PNOP ---
Subjective Interval history: POD 6 s/p right below knee amputation doing well. no changes. Physical Exam Vital signs: Vital Signs 01/30/18 07:53 01/30/18 12:00 01/30/18 16:00 Temperature 98.2 F 98 F 97.6 F Pulse Rate 63 56 L 66 Respiratory Rate 18 18 20 Blood Pressure 129/63 125/58 L 124/70 Pulse Oximetry 97 98 96 01/30/18 19:53 01/30/18 20:00 01/30/18 22:09 Temperature 97.5 F L Pulse Rate 74 Respiratory Rate 18 18 18 Blood Pressure 135/72 Pulse Oximetry 94 L 01/30/18 22:58 01/30/18 23:28 01/31/18 00:00 Temperature 98.1 F Pulse Rate 67 Respiratory Rate 18 18 18 Blood Pressure 127/69 Pulse Oximetry 94 L 01/31/18 02:11 01/31/18 03:00 01/31/18 03:30 Temperature Pulse Rate Respiratory Rate 18 18 18 Blood Pressure Pulse Oximetry Intake & Output 01/30/18 01/30/18 01/31/18 06:59 18:59 06:59 Intake Total 1620 / 1620 Output Total 1625 / 1625 Balance -5 / -5 Weight 131.4 kg Intake: IV 100 / 100 Cubicin Inj 1,000 MG In NS Inj 100 / 100 100 ML @ 200 mls/hr IV.SIG Q24H [facility] Rx#:[id number] Oral 1520 / 1520 Output: Urine 1625 / 1625 Other: Date of Last Bowel Movement 01/30/18 Narrative: RLE: dressings clean and dry.intact. +CKS Results - Labs CBC & Chem 7: 01/25/18 06:52 01/27/18 10:00 - Procedures Removal of hardware right leg with conversion to right below-knee amputation Assessment and Plan - Problem List (1) Below knee amputation status Code(s): Z89.519 - Acquired absence of unspecified leg below knee Status: Acute - Assessment and Plan Chronic wound right leg. Status post IM nail, right tibia. 1) Right Leg Removal of IMN with conversion to BKA - POD 5 PLAN: -NWB -knee brace at all times -elevate -dressing changed at bedside today -daily dressing changes with xeroform/primapore -awaiting cultures, growing group B strep -infectious Dz team to follow. awaiting infectious dz team for IV Abx. cleared for discharge once they arrange. -cleared for DC home once Abx arranged -f/u with [place] or [facility] in 2 weeks [facility] Prescription Drug Monitoring Database has been queried and verified prior to prescribing the controlled substance. Acute pain exception. This patient has normal, predicted, physiological, and time limited response to an adverse mechanical stimulus associated with surgery, trauma, or acute illness as described in my notes. There is a lack of alternative treatment options other than to include the prescribed narcotic treatment for this condition.
--- NOTE | 2018-01-31 07:00 | P.PNOP ---
Subjective Interval history: POD 6 s/p right leg BKA doing well. no changes. still awaiting picc line and Antibiotics per infectious dz team Physical Exam Vital signs: Vital Signs 01/30/18 07:53 01/30/18 12:00 01/30/18 16:00 Temperature 98.2 F 98 F 97.6 F Pulse Rate 63 56 L 66 Respiratory Rate 18 18 20 Blood Pressure 129/63 125/58 L 124/70 Pulse Oximetry 97 98 96 01/30/18 19:53 01/30/18 20:00 01/30/18 22:09 Temperature 97.5 F L Pulse Rate 74 Respiratory Rate 18 18 18 Blood Pressure 135/72 Pulse Oximetry 94 L 01/30/18 22:58 01/30/18 23:28 01/31/18 00:00 Temperature 98.1 F Pulse Rate 67 Respiratory Rate 18 18 18 Blood Pressure 127/69 Pulse Oximetry 94 L 01/31/18 02:11 01/31/18 03:00 01/31/18 03:30 Temperature Pulse Rate Respiratory Rate 18 18 18 Blood Pressure Pulse Oximetry Intake & Output 01/30/18 01/30/18 01/31/18 06:59 18:59 06:59 Intake Total 1620 / 1620 Output Total 1625 / 1625 Balance -5 / -5 Weight 131.4 kg Intake: IV 100 / 100 Cubicin Inj 1,000 MG In NS Inj 100 / 100 100 ML @ 200 mls/hr IV.SIG Q24H [facility] Rx#:[id number] Oral 1520 / 1520 Output: Urine 1625 / 1625 Other: Date of Last Bowel Movement 01/30/18 Narrative: RLE: dressings clean and dry. intact. NVI Results - Labs CBC & Chem 7: 01/25/18 06:52 01/27/18 10:00 - Procedures Removal of hardware right leg with conversion to right below-knee amputation Assessment and Plan - Problem List (1) Below knee amputation status Code(s): Z89.519 - Acquired absence of unspecified leg below knee Status: Acute - Assessment and Plan Chronic wound right leg. Status post IM nail, right tibia. 1) Right Leg Removal of IMN with conversion to BKA - POD 6 PLAN: -NWB -knee brace at all times -elevate -dressing changed at bedside today -daily dressing changes with xeroform/primapore -awaiting cultures, growing group B strep -infectious Dz team to follow. awaiting infectious dz team for IV Abx. cleared for discharge once they arrange. -cleared for DC home once Abx arranged -f/u with [place] or [facility] in 2 weeks [facility] Prescription Drug Monitoring Database has been queried and verified prior to prescribing the controlled substance. Acute pain exception. This patient has normal, predicted, physiological, and time limited response to an adverse mechanical stimulus associated with surgery, trauma, or acute illness as described in my notes. There is a lack of alternative treatment options other than to include the prescribed narcotic treatment for this condition.
[2018-01-31] MEDS: BETA CAROTENE 25000 UNIT PO SCH (10:16)
[2018-01-31] MEDS: Senna/Docusate Sodium 8.6/50 MG Tablet PO SCH ×2 (10:16→21:10)
[2018-01-31] MEDS: Ascorbic Acid 500 MG Tablet PO SCH (10:16)
[2018-01-31] MEDS: Gabapentin 300 MG Capsule PO SCH ×3 (10:16→18:29)
[2018-01-31] MEDS: Pantoprazole Sodium 20 MG DR Tablet PO SCH (10:17)
[2018-01-31] MEDS: Celecoxib 200 MG Capsule PO SCH (10:17)
[2018-01-31] MEDS: Ferrous Sulfate 325 MG Tablet PO SCH (10:17)
[2018-01-31] MEDS: Metoprolol Tartrate 50 MG Tablet PO SCH ×2 (10:18→21:09)
--- NOTE | 2018-01-31 11:45 | P.PNID ---
Subjective Remarks: doing well no fever no new c/o Antibiotics: daptomycin Allergies/Adverse Reactions: Allergies penicillin G Allergy (Severe, Verified 01/28/18 09:08) hives Tolerates Cephalosporins vancomycin Allergy (Severe, Verified 01/25/18 06:03) Hives alprazolam [From Xanax] Allergy (Verified 01/25/18 06:03) Hallucinations Objective Vital Signs 01/30/18 12:00 01/30/18 16:00 01/30/18 19:53 Temperature 98 F 97.6 F Pulse Rate 56 L 66 Respiratory Rate 18 20 18 Blood Pressure 125/58 L 124/70 Pulse Oximetry 98 96 01/30/18 20:00 01/30/18 22:09 01/30/18 22:58 Temperature 97.5 F L Pulse Rate 74 Respiratory Rate 18 18 18 Blood Pressure 135/72 Pulse Oximetry 94 L 01/30/18 23:28 01/31/18 00:00 01/31/18 02:11 Temperature 98.1 F Pulse Rate 67 Respiratory Rate 18 18 18 Blood Pressure 127/69 Pulse Oximetry 94 L 01/31/18 03:00 01/31/18 03:30 01/31/18 06:20 Temperature Pulse Rate Respiratory Rate 18 18 18 Blood Pressure Pulse Oximetry 01/31/18 08:00 Temperature 97.6 F Pulse Rate 56 L Respiratory Rate 18 Blood Pressure 131/71 Pulse Oximetry 96 Intake & Output 01/30/18 01/31/18 01/31/18 18:59 06:59 18:59 Intake Total 1620 / 1620 480 / 480 Output Total 1625 / 1625 1375 / 1375 Balance -5 / -5 -895 / -895 Weight 131.1 kg Intake: IV 100 / 100 Cubicin Inj 1,000 MG In NS Inj 100 / 100 100 ML @ 200 mls/hr IV.SIG Q24H [facility] Rx#:[id number] Oral 1520 / 1520 480 / 480 Output: Urine 1625 / 1625 1375 / 1375 Other: Date of Last Bowel Movement 01/30/18 Imaging: ITS Impressions Tibia/Fibula X-Ray 01/25/18 00:00 CONCLUSION: Limited images as detailed above. Physical Exam: GENERAL: NAD SKIN: Warm and dry. no rash HEAD: Atraumatic. Normocephalic. EYES: No scleral icterus. RESPIRATORY: unlaboured breathing MUSCULOSKELETAL: Extremities without clubbing, cyanosis, or edema. RLE w ith post op dressing in place, NEUROLOGICAL: Awake and alert. Non focal PSYCH: calm, cooperative Assessment and Plan - Plan Chronic multifocal osteomyelitis, right tibia and fibula MSSA previously now Group B strep Open fracture of shaft of right tibia, type IIIA, IIIB, or IIIC, with nonunion change daptomycin to Rocephin 2 gm daily x 6weeks PO will be necessary in case clinically appears infected and/or still elevated CRP/ESR after IV course completed fu [facility] dw case mngr OK to dc after everything is arranged
[2018-01-31] MEDS: DAPTOmycin Inj 1,000 MG in Sodium Chlor 0.9% Inj 100 ML IV.SIG SCH (12:00)
--- NOTE | 2018-01-31 12:25 | P.DCO ---
Post Hospital Infusion Therapy - Infusion Therapy Location of Infusion Therapy: Home Health Care IV Infusion Order - Patient Information Patient Weight: 131.1 kg - Diagnosis (1) Chronic multifocal osteomyelitis, right tibia and fibula Code(s): M86.361 - Chronic multifocal osteomyelitis, right tibia and fibula - Administer Medication Ceftriaxone Dose: 2 grams IV Directions: q 24 hours Start Treatment: 01/31/18 Stop Treatment: 03/14/18 - Additional Information Venous Access: PICC Line Additional Instructions: [x] Peripheral flush and dressing changes per protocol [x] Implanted port and central lineman a class: * Implanted port: 10 ml Normal Saline followed by 5 ml Heparin 100 units/ml Heparin flush after each use and monthly to maintain. [] May leave port accessed during therapy. [] May leave peripheral site accessed for duration of therapy. [x] If patient has SOB or respiratory distress, check oxygen saturation. If less than 90% or clinical signs of respiratory distress, administer oxygen at 2 L/min. via nasal cannula and notify physician. [x] Anaphylaxis/Reaction orders: * Stop infusion. * Keep IV line open with saline flush. * Notify physician. * Monitor vital signs every 15 minutes until symptoms resolve. * Check Oxygen saturation; Oxygen at 2 L/min. via nasal cannula if less than 90% or clinical signs of respiratory distress. * Administer diphenhydramine (Benadryl) 25 mg IV STAT, (unless patient has received as pre-med). May repeat once, if necessary. * Solu-Cortef 250 mg IVP over 30-60 seconds, use 100 mg vials for each dissolution. * Epinephrine (1mg/1 ml) 0.3 mg subcutaneously or IVP now with any signs of respiratory distress. * Check with physician for new additional pre-med orders if patient is re- challenged or re-treated. [x] May remove PICC line when treatment complete, after confirming with Physician. [x] If the patient is admitted to the hospital, the ED, or transferred via [facility] , complete transfer form including medication reconciliation order sheet. Weekly Labs: CBC w/diff, CMP - Case Management Consult Case Management Consult-IVF: Yes - Patient Information Allergies penicillin G Allergy (Severe, Verified 01/28/18 09:08) hives Tolerates Cephalosporins vancomycin Allergy (Severe, Verified 01/25/18 06:03) Hives alprazolam [From Xanax] Allergy (Verified 01/25/18 06:03) Hallucinations
[2018-01-31 13:26] LABS: Baso # (Auto) 0.1 th/mm3 (0.0-0.2); Eos # (Auto) 0.6 th/mm3 (0.0-0.4); Eos % (Auto) 5.1 % (0.0-4.0); Hematocrit 43.4 % (39.0-51.0); Hemoglobin 14.4 gm/dL (13.0-17.0); Lymph % (Auto) 25.7 % (9.0-44.0); Mean Corpuscular HGB Conc 33.2 % (32.0-36.0); Mean Corpuscular Hemoglobin 30.3 pg (27.0-34.0); Mean Corpuscular Volume 91.2 fL (80.0-100.0); Mean Platelet Volume 9.8 fL (7.0-11.0); Neut # (Auto) 6.9 th/mm3 (1.8-7.7); Neut % (Auto) 59.2 % (16.0-70.0); Platelet Count 288 th/mm3 (150-450); Red Blood Count 4.76 mil/mm3 (4.50-5.90); Red Cell Distribution Width 13.5 % (11.6-17.2); White Blood Count 11.7 th/mm3 (4.0-11.0)
[2018-01-31 13:46] LABS: Anion Gap 5 meq/L (5-15); Blood Urea Nitrogen 14 mg/dL (7-18); Calcium 8.2 mg/dL (8.5-10.1); Carbon Dioxide 30.5 meq/L (21.0-32.0); Chloride 104 meq/L (98-107); Glomerular Filtration Rate Greater Than 89 mL/min (>89); Glucose,Random 93 mg/dL (74-106); Potassium 3.9 meq/L (3.5-5.1); Sodium 139 meq/L (136-145)
[2018-02-01] MEDS: HYDROmorphone PF Inj 1 MG/ML Ampul IV.PUSH PRN ×5 (03:45→22:41)
[2018-02-01] MEDS: Celecoxib 200 MG Capsule PO SCH (09:03)
[2018-02-01] MEDS: BETA CAROTENE 25000 UNIT PO SCH (09:03)
[2018-02-01] MEDS: Ascorbic Acid 500 MG Tablet PO SCH (09:03)
[2018-02-01] MEDS: Gabapentin 300 MG Capsule PO SCH ×3 (09:04→18:16)
[2018-02-01] MEDS: Senna/Docusate Sodium 8.6/50 MG Tablet PO SCH ×2 (09:04→20:31)
[2018-02-01] MEDS: Ferrous Sulfate 325 MG Tablet PO SCH (09:04)
[2018-02-01] MEDS: Pantoprazole Sodium 20 MG DR Tablet PO SCH (09:04)
[2018-02-01] MEDS: Metoprolol Tartrate 50 MG Tablet PO SCH ×2 (09:04→20:31)
--- NOTE | 2018-02-01 09:11 | P.PNOP ---
Subjective Interval history: s/p Right BKA doing well. no changes. states got picc line placed yesterday Physical Exam Vital signs: Vital Signs 01/31/18 12:00 01/31/18 16:00 01/31/18 23:04 Temperature 97.9 F 97.8 F 98.1 F Pulse Rate 66 79 Respiratory Rate 52 H 18 18 Blood Pressure 135/56 L 120/64 99/55 L Pulse Oximetry 100 96 93 L Intake & Output 01/31/18 02/01/18 02/01/18 18:59 06:59 18:59 Intake Total 700 / 700 Output Total 250 / 250 700 / 700 Balance 450 / 450 -700 / -700 Weight 131.1 kg 131.5 kg Intake: IV 100 / 100 Cubicin Inj 1,000 MG In NS Inj 100 / 100 100 ML @ 200 mls/hr IV.SIG Q24H [facility] Rx#:[id number] Oral 600 / 600 Output: Urine 250 / 250 700 / 700 Other: Date of Last Bowel Movement 01/30/18 Narrative: RLE: dressings clean and dry. intact. NVI. +CKS Results - Labs CBC & Chem 7: 01/31/18 13:05 01/31/18 13:05 Laboratory Results - last 24 hr 01/31/18 01/31/18 13:05 13:05 WBC 11.7 H RBC 4.76 Hgb 14.4 Hct 43.4 MCV 91.2 MCH 30.3 MCHC 33.2 RDW 13.5 Plt Count 288 MPV 9.8 Neut % (Auto) 59.2 Lymph % (Auto) 25.7 [place] % (Auto) 9.0 H Eos % (Auto) 5.1 H Baso % (Auto) 1.0 Neut # (Auto) 6.9 Lymph # (Auto) 3.0 [place] # (Auto) 1.0 H Eos # (Auto) 0.6 H Baso # (Auto) 0.1 WBC Differential . Differential Comment Auto diff final Sodium 139 Potassium 3.9 Chloride 104 Carbon Dioxide 30.5 Anion Gap 5 BUN 14 Creatinine 0.83 Estimated GFR Greater than 89 Random Glucose 93 Calcium 8.2 L - Procedures Removal of hardware right leg with conversion to right below-knee amputation Assessment and Plan - Problem List (1) Below knee amputation status Code(s): Z89.519 - Acquired absence of unspecified leg below knee Status: Acute - Assessment and Plan Chronic wound right leg. Status post IM nail, right tibia. 1) Right Leg Removal of IMN with conversion to BKA - POD 7 PLAN: -NWB -knee brace at all times -elevate -dressing changed at bedside today -daily dressing changes with xeroform/primapore -awaiting cultures, growing group B strep -infectious Dz team to follow. awaiting infectious dz team for IV Abx. cleared for discharge once they arrange. -cleared for DC home once Abx arranged -plan for discharge home today -f/u with [place] or [facility] in 2 weeks [employer] Prescription Drug Monitoring Database has been queried and verified prior to prescribing the controlled substance. Acute pain exception. This patient has normal, predicted, physiological, and time limited response to an adverse mechanical stimulus associated with surgery, trauma, or acute illness as described in my notes. There is a lack of alternative treatment options other than to include the prescribed narcotic treatment for this condition.
[2018-02-01] MEDS: DAPTOmycin Inj 1,000 MG in Sodium Chlor 0.9% Inj 100 ML IV.SIG SCH (13:05)
[2018-02-02] MEDS: HYDROmorphone PF Inj 1 MG/ML Ampul IV.PUSH PRN ×2 (03:07→10:06)
[2018-02-02] MEDS: Celecoxib 200 MG Capsule PO SCH (08:11)
[2018-02-02] MEDS: Ascorbic Acid 500 MG Tablet PO SCH (08:12)
[2018-02-02] MEDS: Senna/Docusate Sodium 8.6/50 MG Tablet PO SCH (08:12)
[2018-02-02] MEDS: Ferrous Sulfate 325 MG Tablet PO SCH (08:12)
[2018-02-02] MEDS: Metoprolol Tartrate 50 MG Tablet PO SCH (08:12)
[2018-02-02] MEDS: BETA CAROTENE 25000 UNIT PO SCH (08:12)
[2018-02-02] MEDS: Gabapentin 300 MG Capsule PO SCH (08:12)
[2018-02-02] MEDS: Pantoprazole Sodium 20 MG DR Tablet PO SCH (08:12)
[2018-02-02] MEDS: DAPTOmycin Inj 1,000 MG in Sodium Chlor 0.9% Inj 100 ML IV.SIG SCH (10:58)
--- NOTE | 2018-02-02 11:18 | P.PNOP ---
Subjective Interval history: no changes. still awaiting case management and insurance arrangements Physical Exam Vital signs: Vital Signs 02/01/18 12:00 02/01/18 16:00 02/01/18 20:00 Temperature 97.3 F L 97.6 F 98.4 F Pulse Rate 58 L 68 Respiratory Rate 16 16 17 Blood Pressure 106/57 L 99/53 L 132/69 Pulse Oximetry 97 98 97 02/02/18 00:00 02/02/18 02:07 02/02/18 08:00 Temperature 97.8 F 97.6 F Pulse Rate 55 L 58 L Respiratory Rate 16 20 18 Blood Pressure 110/56 L 115/57 L Pulse Oximetry 94 L 94 L Intake & Output 02/01/18 02/02/18 02/02/18 18:59 06:59 18:59 Intake Total 820 / 820 720 / 720 Output Total 200 / 200 1250 / 1250 Balance 620 / 620 -530 / -530 Weight 131.2 kg Intake: IV 100 / 100 Cubicin Inj 1,000 MG In NS Inj 100 / 100 100 ML @ 200 mls/hr IV.SIG Q24H PRAVIN Rx#:[id number] Oral 720 / 720 720 / 720 Output: Urine 200 / 200 1250 / 1250 Other: # Voids 2 Date of Last Bowel Movement 02/01/18 # Bowel Movements 1 Narrative: RLE: dressings clean and dry. intact. NVI. +CKS Results - Labs CBC & Chem 7: 01/31/18 13:05 01/31/18 13:05 Microbiology 01/25/18 08:06 Tissue - Other Fungal Smear - Final No fungal elements seen 01/25/18 08:06 Tissue - Other Fungal Culture - Preliminary No growth in 1 week 01/25/18 08:06 Tissue - Other Acid Fast Bacilli Smear - Final No acid fast bacilli seen 01/25/18 08:06 Tissue - Other Mycobacterial Culture - Preliminary No growth in 1 week 01/25/18 08:06 Wound - Other Fungal Smear - Final No fungal elements seen 01/25/18 08:06 Wound - Other Fungal Culture - Preliminary No growth in 1 week 01/25/18 08:06 Wound - Other Acid Fast Bacilli Smear - Final No acid fast bacilli seen 01/25/18 08:06 Wound - Other Mycobacterial Culture - Preliminary No growth in 1 week 01/25/18 08:06 Wound - Leg Fungal Smear - Final No fungal elements seen 01/25/18 08:06 Wound - Leg Fungal Culture - Preliminary No growth in 1 week 01/25/18 08:06 Wound - Leg Acid Fast Bacilli Smear - Final No acid fast bacilli seen 01/25/18 08:06 Wound - Leg Mycobacterial Culture - Preliminary No growth in 1 week - Procedures Removal of hardware right leg with conversion to right below-knee amputation Assessment and Plan - Problem List (1) Below knee amputation status Code(s): Z89.519 - Acquired absence of unspecified leg below knee Status: Acute - Assessment and Plan Chronic wound right leg. Status post IM nail, right tibia. 1) Right Leg Removal of IMN with conversion to BKA - POD 7 PLAN: -NWB -knee brace at all times -elevate -dressing changed at bedside today -daily dressing changes with xeroform/primapore -awaiting cultures, growing group B strep -infectious Dz team to follow. awaiting infectious dz team for IV Abx. cleared for discharge once they arrange. -cleared for DC home once Abx arranged -plan for discharge home today -f/u with [place] or [facility] in 2 weeks [facility] Prescription Drug Monitoring Database has been queried and verified prior to prescribing the controlled substance. Acute pain exception. This patient has normal, predicted, physiological, and time limited response to an adverse mechanical stimulus associated with surgery, trauma, or acute illness as described in my notes. There is a lack of alternative treatment options other than to include the prescribed narcotic treatment for this condition.
== END 2018-02-02 12:41 | disposition home health service (06) ==
LOC: HSDI 05:12 → N07 11:58
PROVIDERS: ADMIT Orthopaedic Surgery Orthopaedic Trauma; ATTEND Orthopaedic Surgery Orthopaedic Trauma